=== PATIENT | female | born 1960 | race Caucasian/White ===

== ENCOUNTER 2018-04-07 11:30 | Emergency (ER) | payer OTHER, SELFPAY ==
[2018-04-07 11:35] VITALS: BP 150/81; PULSE 64; RESP 16; TEMP 36.1; O2SAT 99; BMI 24.9
--- NOTE | 2018-04-07 11:52 | DI.RAD.S_ITS ---
PROCEDURE: XR CHEST 1V INDICATIONS: chest pain TECHNIQUE: One view of the chest was acquired. COMPARISON: None. FINDINGS: Surgical changes and devices: None. Lungs and pleura: No pleural effusions or pneumothorax. Lungs are clear. Mediastinum: Mediastinal contours appear normal. Heart size is normal. Bones and chest wall: No suspicious bony lesions. Overlying soft tissues appear unremarkable. IMPRESSION: No acute cardiopulmonary abnormality. Source of chest pain not seen. Dictated by: Rey Horne M.D. on 04/07/2018 at 12:15 Approved by: Rey Horne M.D. on 04/07/2018 at 12:16
[2018-04-07 12:01] LABS: Add Manual Diff / Slide Review NO; Basophils Percent Auto 0.7 % (0-2); Hematocrit 35.8 % (36-46); Hemoglobin 12.3 g/dL (12.0-16.0); Mean Corpuscular HGB Conc 34.5 % (30-36); Mean Corpuscular Hemoglobin 31.4 PG (26-34); Monocytes Percent Auto 8.5 % (3-14); Neutrophils Absolute Auto 3000 /uL (3000-5900); Neutrophils Percent Auto 54.8 % (50-75); Platelet Count 217 X10^3/uL (150-400); Red Blood Cell Count 3.93 X10^6/uL (4.0-5.2); Red Cell Distribution Width 13.8 % (11.6-14.8); White Blood Cell Count 5.5 X10^3/uL (4.5-11.0)
[2018-04-07 12:12] LABS: Prothrombin Time 11.3 SECONDS (10.1-12.7)
[2018-04-07 12:15] LABS: Alanine Aminotransferase 28 IU/L (9-52); Albumin 4.5 g/dL (3.5-5.0); Albumin Globulin Ratio 1.4 (1.0-2.8); Alkaline Phosphatase 63 U/L (38-126); Aspartate Aminotransferase 30 IU/L (14-36); BUN Creatinine Ratio 22.9 (6-22); Bilirubin Total 0.6 mg/dL (0.2-1.3); Blood Urea Nitrogen 16 mg/dL (7-17); Calcium 9.5 mg/dL (8.4-10.2); Carbon Dioxide 31 mmol/L (22-32); Chloride 100 mmol/L (98-107); Creatine Kinase 58 U/L (30-135); Estimated Glomerular Filt Rate > 60.0 mL/min (>60); Globulin 3.2 g/dL (1.7-4.1); Glucose 104 mg/dL (70-100); HEMOLYSIS < 15 (0-50); Lipase 157 U/L (23-300); PTT Partial Thromboplastin Tim 29 SECONDS (26.4-36.2); Potassium 3.7 mmol/L (3.4-5.1); Sodium 139 mmol/L (137-145); Total Protein 7.7 g/dL (6.3-8.2)
[2018-04-07 12:28] LABS: Troponin I < 0.012 ng/mL (0.01-0.034)
--- NOTE | 2018-04-07 12:40 | ED.CHESTPAIN ---
HPI - Chest Pain <CHRIS Odonnell - Last Filed: 04/07/18 23:00> General Chief Complaint: Chest Pain Stated Complaint: 'WEIRD CHEST PAINS' Time Seen by Provider: 04/07/18 12:40 History of Present Illness HPI narrative: 57-year-old female here for complaint of having ?chest pressure? with feelings of a fluttering in her chest on and off for the past couple of months. She denies any cardiac history. She states that she did have a stress test last year and was normal. She denies any stressors or relievers of her symptoms. She does report that she does get periodic shortness of breath if she goes up stairs. No nausea vomiting no diaphoresis. She does not have any chest pain. She denies any symptoms at this time. She is ambulatory into the emergency room. She denies having any cough. She does report having increased stress over the same time frame. No other concerns or complaints. Related Data Home Medications Medication Instructions Recorded Confirmed aspirin 81 mg tablet,delayed 81 mg PO DAILY 04/07/18 04/07/18 release esomeprazole magnesium 1 cap PO DAILY 04/07/18 04/07/18 Allergies Allergy/AdvReac Type Severity Reaction Status Date / Time No Known Drug Allergies Allergy Verified 04/07/18 10:38 Review of Systems <CHRIS Odonnell - Last Filed: 04/07/18 23:00> Constitutional Denies chills, Denies fatigue, Denies fever(s), Denies lethargy and Denies weakness Eyes Denies change in vision, Denies eye discharge, Denies irritation and Denies loss of vision ENT Ears, Nose, Mouth, and Throat: Denies change in voice, Denies neck pain and Denies sore throat Cardiovascular Denies dyspnea and Denies dyspnea on exertion Comments: . Headache chest pressure and dyspnea while going up stairs Respiratory Denies cough, Denies dyspnea, Denies dyspnea on exertion and Denies wheezing Gastrointestinal Gastrointestinal: Denies abdominal pain, Denies change in bowel habits, Denies diarrhea, Denies nausea and Denies vomiting Genitourinary Denies hematuria, Denies flank pain, Denies urinary incontinence and Denies urinary urgency Musculoskeletal Denies neck pain Integumentary/Breasts Denies pruritus, Denies erythema, Denies rash and Denies wounds Neurologic Denies confusion, Denies loss of vision and Denies weakness Psychiatric Denies anxiety, Denies confusion, Denies depression, Denies homicidal ideation and Denies suicidal ideation Endocrine Denies fatigue and Denies flushing Hematologic/Lymphatic Denies easy bruising Allergic/Immunologic Denies wheezing Exam <CHRIS Odonnell - Last Filed: 04/07/18 23:00> Initial Vital Signs Initial Vital Signs: Vital Signs Temperature 97.0 F L 04/07/18 11:35 Pulse Rate 64 04/07/18 11:35 Respiratory Rate 16 04/07/18 11:35 Blood Pressure 150/81 H 04/07/18 11:35 Pulse Oximetry 99 04/07/18 11:35 Const General: cooperative and well developed Nutritional Appearance: well nourished Orientation: alert, awake, oriented x3 and not confused HENMT Mouth: oral mucosae normal and moist mucous membranes Eyes Conjunctivae: conjunctivae normal Sclera: sclerae normal Pupils: PERRL EOM: EOM intact bilaterally Chest Chest: normal inspection of the chest Resp Effort & Inspection: normal respiratory effort, able to speak in complete sentences, no respiratory distress and no use of accessory muscles Auscultation: clear to auscultation bilaterally, no rales, no rhonchi and no wheezes Cardio Rate: regular rate Rhythm: regular rhythm Heart Sounds: no click, no gallops, no murmurs and no rubs Pulses: normal peripheral pulses Skin General: no rashes or lesions noted, No jaundice and No petechiae Neuro General: alert, oriented x3, gait normal and no focal motor deficits Speech: speech normal <Yovani Almaraz DO - Last Filed: 04/08/18 07:21> Initial Vital Signs Initial Vital Signs: Vital Signs Temperature 97.0 F L 04/07/18 11:35 Pulse Rate 64 04/07/18 11:35 Respiratory Rate 16 04/07/18 11:35 Blood Pressure 150/81 H 04/07/18 11:35 Pulse Oximetry 99 04/07/18 11:35 Scores <CHRIS Odonnell - Last Filed: 04/07/18 23:00> HEART Score Heart Score history: Slightly Suspicious Heart Score EKG: Normal Heart Score Age: 45-64 years old Heart Score risk factors: No known risk factors Heart Score troponin: < or = to normal limit Heart Score Total: 1 PERC Score Age greater than or equal to 50 years: Yes Heart rate greater than or equal to 100 bpm: No Room Air O2 Sat less than 95%: No Unilateral leg swelling: No Recent trauma or surgery: No Hemoptysis: No Prior PE or DVT: No Hormone Use: No Total PERC Score: 1 Course <CHRIS Odonnell - Last Filed: 04/07/18 23:00> Orders Ordered: ED Orders 04/07/18 11:50 B Type Natriuretic Peptide Stat Complete Blood Count AUTO DIFF Stat Comprehensive Metabolic Panel Stat D Dimer Stat Lipase Stat Partial Thromboplastin Time Stat Prothrombin Time INR Stat Troponin & CK Cardiac Panel Stat 04/07/18 11:52 XR chest 1V Stat EKG-12 Lead Stat Vital Signs - 8 hr 04/07/18 11:35 Temperature 97.0 F L Pulse Rate 64 Respiratory Rate 16 Blood Pressure 150/81 H Pulse Oximetry 99 <Yovani Almaraz DO - Last Filed: 04/08/18 07:21> Orders Ordered: ED Orders 04/07/18 11:50 B Type Natriuretic Peptide Stat Complete Blood Count AUTO DIFF Stat Comprehensive Metabolic Panel Stat D Dimer Stat Lipase Stat Partial Thromboplastin Time Stat Prothrombin Time INR Stat Troponin & CK Cardiac Panel Stat 04/07/18 11:52 XR chest 1V Stat EKG-12 Lead Stat Vital Signs - 8 hr 04/07/18 11:35 Temperature 97.0 F L Pulse Rate 64 Respiratory Rate 16 Blood Pressure 150/81 H Pulse Oximetry 99 MDM - Chest Pain <CHRIS Odonnell - Last Filed: 04/07/18 23:00> Lab Data Result diagrams: 04/07/18 11:50 04/07/18 11:50 Lab Results 04/07/18 04/07/18 04/07/18 Range/Units 11:50 11:50 11:50 WBC 5.5 (4.5-11.0) X10^3/uL RBC 3.93 L (4.0-5.2) X10^6/uL Hgb 12.3 (12.0-16.0) g/dL Hct 35.8 L (36-46) % MCV 91.0 (80-100) fL MCH 31.4 (26-34) PG MCHC 34.5 (30-36) % RDW 13.8 (11.6-14.8) % Plt Count 217 (150-400) X10^3/uL Neut % (Auto) 54.8 (50-75) % Lymph % (Auto) 33.0 (25-40) % [place] % (Auto) 8.5 (3-14) % Eos % (Auto) 3.0 (2-4) % Baso % (Auto) 0.7 (0-2) % Neut # (Auto) 3000 (0028-9346) /uL PT 11.3 (10.1-12.7) SECONDS INR 1.0 (0.9-1.3) APTT 29 (26.4-36.2) SECONDS D-Dimer < 200 (<230) ng/mL Sodium 139 (137-145) mmol/L Potassium 3.7 (3.4-5.1) mmol/L Chloride 100 (98-107) mmol/L Carbon Dioxide 31 (22-32) mmol/L BUN 16 (7-17) mg/dL Creatinine 0.70 (0.52-1.04) mg/dL Estimated GFR > 60.0 (>60) mL/min BUN/Creatinine Ratio 22.9 H (6-22) Glucose 104 H (70-100) mg/dL Calcium 9.5 (8.4-10.2) mg/dL Total Bilirubin 0.6 (0.2-1.3) mg/dL AST 30 (14-36) IU/L ALT 28 (9-52) IU/L Alkaline Phosphatase 63 (38-126) U/L Total Creatine Kinase 58 (30-135) U/L Troponin I < 0.012 (0.01-0.034) ng/mL B-Natriuretic Peptide < 100.0 (<100) Total Protein 7.7 (6.3-8.2) g/dL Albumin 4.5 (3.5-5.0) g/dL Globulin 3.2 (1.7-4.1) g/dL Albumin/Globulin Ratio 1.4 (1.0-2.8) Lipase 157 (23-300) U/L Imaging Data Chest x-ray: Radiologist's impression: PROCEDURE: XR CHEST 1V INDICATIONS: chest pain TECHNIQUE: One view of the chest was acquired. COMPARISON: None. FINDINGS: Surgical changes and devices: None. Lungs and pleura: No pleural effusions or pneumothorax. Lungs are clear. Mediastinum: Mediastinal contours appear normal. Heart size is normal. Bones and chest wall: No suspicious bony lesions. Overlying soft tissues appear unremarkable. IMPRESSION: No acute cardiopulmonary abnormality. Source of chest pain not seen. Dictated by: Rey Horne M.D. on 04/07/2018 at 12:15 Approved by: Rey Horne M.D. on 04/07/2018 at 12:16 ECG Data Interpretation: EKG shows sinus bradycardia with no ST elevation or depression. No ectopy. Ventricular rate of 59. Pr interval of 227. QRS duration of 89. QT of 441 MDM Narrative Medical decision making narrative: CBC and Chem panel were obtained were unremarkable. Chest x-ray was negative for any acute findings. EKG shows sinus bradycardia with no ST elevation or depression. Troponin was negative. BMP was obtained and was negative as well. D-dimer was less than 200. Recommend the patient follow up with primary care provider with discussion of Holter monitor due to complaint of fluttering in her chest at times and no abnormal rhythms were seen in the emergency room today. Differential of anxiety related symptoms due to increased stress. Follow up with primary care provider in the next few days for re-evaluation. For any worsening symptoms return to the emergency room. <Yovani Almaraz, DO - Last Filed: 04/08/18 07:21> Lab Data Lab Results 04/07/18 04/07/18 04/07/18 Range/Units 11:50 11:50 11:50 WBC 5.5 (4.5-11.0) X10^3/uL RBC 3.93 L (4.0-5.2) X10^6/uL Hgb 12.3 (12.0-16.0) g/dL Hct 35.8 L (36-46) % MCV 91.0 (80-100) fL MCH 31.4 (26-34) PG MCHC 34.5 (30-36) % RDW 13.8 (11.6-14.8) % Plt Count 217 (150-400) X10^3/uL Neut % (Auto) 54.8 (50-75) % Lymph % (Auto) 33.0 (25-40) % [place] % (Auto) 8.5 (3-14) % Eos % (Auto) 3.0 (2-4) % Baso % (Auto) 0.7 (0-2) % Neut # (Auto) 3000 (8448-0276) /uL PT 11.3 (10.1-12.7) SECONDS INR 1.0 (0.9-1.3) APTT 29 (26.4-36.2) SECONDS D-Dimer < 200 (<230) ng/mL Sodium 139 (137-145) mmol/L Potassium 3.7 (3.4-5.1) mmol/L Chloride 100 (98-107) mmol/L Carbon Dioxide 31 (22-32) mmol/L BUN 16 (7-17) mg/dL Creatinine 0.70 (0.52-1.04) mg/dL Estimated GFR > 60.0 (>60) mL/min BUN/Creatinine Ratio 22.9 H (6-22) Glucose 104 H (70-100) mg/dL Calcium 9.5 (8.4-10.2) mg/dL Total Bilirubin 0.6 (0.2-1.3) mg/dL AST 30 (14-36) IU/L ALT 28 (9-52) IU/L Alkaline Phosphatase 63 (38-126) U/L Total Creatine Kinase 58 (30-135) U/L Troponin I < 0.012 (0.01-0.034) ng/mL B-Natriuretic Peptide < 100.0 (<100) Total Protein 7.7 (6.3-8.2) g/dL Albumin 4.5 (3.5-5.0) g/dL Globulin 3.2 (1.7-4.1) g/dL Albumin/Globulin Ratio 1.4 (1.0-2.8) Lipase 157 (23-300) U/L Discharge Plan Departure Patient Disposition: Home, Self-Care Clinical Impression: Chest pain Discharge Date/Time: 04/07/18 14:17 Interventions: ED Discharge Assessment Last Done: 04/07/18 14:17 Instructions: DI for Atypical Chest Pain Activity Restrictions/Additional Instructions: Laboratory results EKG and chest x-ray were unremarkable today. Recommend following up with her primary care provider in the next few days for re-evaluation and discussion of obtaining Holter monitor for further evaluation. Differential of some anxiety may be causing some of her symptoms also discussed this with her primary care provider. For any worsening symptoms return to the emergency room for Prescriptions: No Action aspirin [Adult Low Dose Aspirin] 81 mg tablet,delayed release (DR/EC) 81 mg PO DAILY RF: 0 esomeprazole magnesium 1 cap PO DAILY RF: 0 Referrals: Nelly Sethi MD [Primary Care Provider] - <Yovani Almaraz DO - Last Filed: 04/08/18 07:21> Cosign ED Attending Kevin Attestation: I was available for consultation during this patient's emergency department encounter
[2018-04-07 13:22] LABS: D Dimer < 200 ng/mL (<230)
[2018-04-07 13:36] LABS: B Type Natriuretic Peptide < 100.0 (<100)
== END 2018-04-07 14:17 | disposition home or self-care (01) ==
PROVIDERS: Emergency Medicine; Emergency Provider Nurse Practitioner Family; Family Provider Family Medicine; PCP Family Medicine
DX: R07.89 Other chest pain (principal)
CPT/HCPCS: 36591; 71045; 80053; 82550; 82553; 83690; 83880; 84484; 85025; 85379; 85610; 85730; 93005; 99282; 99285

== ENCOUNTER → 2018-04-10 14:49 | Outpatient (CLI) | payer OTHER, SELFPAY ==
[2018-04-10 16:50] LABS: Thyroid Stimulating Hormone 1.42 uIU/mL (0.47-4.68)
== END ==
PROVIDERS: PCP Internal Medicine; Visit Provider Internal Medicine
DX: R00.2 Palpitations (principal)
CPT/HCPCS: 36415; 84443

== ENCOUNTER → 2018-04-24 13:53 | Outpatient (CLI) | payer OTHER, SELFPAY ==
--- NOTE | 2018-05-05 07:58 | PM.CARDMON.1 ---
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
== END ==
PROVIDERS: Family Provider Family Medicine; PCP Internal Medicine; Visit Provider Internal Medicine
DX: R00.2 Palpitations (principal)
CPT/HCPCS: 0296T

== ENCOUNTER → 2019-04-13 14:26 | Outpatient (CLI) | payer OTHER, SELFPAY ==
--- NOTE | 2019-04-13 | DI.MG.S_ITS ---
BILATERAL DIGITAL SCREENING MAMMOGRAM 3D/2D WITH CAD: 04/13/2019 CLINICAL: Routine screening. Comparison is made to exams dated: 04/15/2017 mammogram, 02/28/2015 mammogram, 12/15/2012 mammogram, 01/08/2011 mammogram, and 11/04/2009 mammogram - [facility]. The tissue of both breasts is extremely dense, which lowers the sensitivity of mammography. Current study was also evaluated with a Computer Aided Detection (CAD) system. No significant masses, calcifications, or other findings are seen in either breast. There has been no significant interval change. IMPRESSION: NEGATIVE There is no mammographic evidence of malignancy. A 1 year screening mammogram is recommended. This exam was interpreted at Station ID: [id number]. NOTE: For mammograms, a report in lay terms will be sent to the patient. Approximately 15% of breast malignancies will not be visualized mammographically. In the management of a palpable breast mass, a negative mammogram must not discourage biopsy of a clinically suspicious lesion. Electronically Signed By: Ten goff/jada:04/13/2019 15:07:21 letter sent: Normal Exam ACR BI-RADS Category 1: Negative 3341F
== END ==
PROVIDERS: PCP Family Medicine; Visit Provider Family Medicine
DX: Z12.31 Encounter for screening mammogram for malignant neoplasm of breast (principal)
CPT/HCPCS: 77063; 77067

== ENCOUNTER → 2021-06-25 10:42 | Outpatient (CLI) | payer OTHER, SELFPAY ==
--- NOTE | 2021-06-25 | DI.MG.S_ITS ---
BILATERAL DIGITAL SCREENING MAMMOGRAM 3D/2D WITH CAD: 06/25/2021 CLINICAL: Routine screening. Comparison is made to exams dated: 04/13/2019 mammogram, 04/15/2017 mammogram, and 02/28/2015 mammogram - [facility]. The tissue of both breasts is extremely dense, which lowers the sensitivity of mammography. Current study was also evaluated with a Computer Aided Detection (CAD) system. No significant masses, calcifications, or other findings are seen in either breast. There has been no significant interval change. IMPRESSION: NEGATIVE There is no mammographic evidence of malignancy. A 1 year screening mammogram is recommended. This exam was interpreted at Station ID: [id number]. NOTE: For mammograms, a report in lay terms will be sent to the patient. Approximately 15% of breast malignancies will not be visualized mammographically. In the management of a palpable breast mass, a negative mammogram must not discourage biopsy of a clinically suspicious lesion. Electronically Signed By: Sheldon de la rosa/jada:06/25/2021 11:17:49 letter sent: Normal Exam ACR BI-RADS Category 1: Negative 3341F
== END ==
PROVIDERS: PCP Family Medicine; Referring Provider Family Medicine; Visit Provider Family Medicine
DX: Z12.31 Encounter for screening mammogram for malignant neoplasm of breast (principal)
CPT/HCPCS: 77063; 77067

== ENCOUNTER → 2021-08-12 09:03 | Outpatient (CLI) | payer OTHER, SELFPAY ==
[2021-08-12 12:44] LABS: COVID19 -Nasal RAPID Negative (Negative)
== END ==
PROVIDERS: PCP Family Medicine; Visit Provider Surgery
DX: Z01.812 Encounter for preprocedural laboratory examination (principal); Z20.822 Contact with and (suspected) exposure to COVID-19
CPT/HCPCS: 87635

== ENCOUNTER 2021-08-13 07:47 | Day surgery (SDC) | payer OTHER, SELFPAY ==
--- NOTE | 2021-08-13 | PATH_ITS ---
[facility] Accession Number: [id number] . 01 Material submitted: . sigmoid colon - SIGMOID COLON POLYPS X2 . 02 Diagnosis: Sigmoid Colon Polyps x2: Portions of hyperplastic polyp x2. MRV 08/17/2021 1055 Local . 02 Electronically signed: . Alicia Richmond MD, Pathologist NPI- [id number] . 01 Gross description: . SIGMOID COLON POLYPS X2: Received in formalin are 2 fragment(s) of iqbal, soft tissue measuring 0.6 x 0.3 x 0.3 cm to 0.3 x 0.3 x 0.2 cm submitted entirely in 1 cassette(s) /QBJ 08/14/2021 0836 Local . 02 Pathologist provided ICD-10: K63.5 . 02 CPT . 221737 Performed at: 01 [facility] [address] [id number] MD Sheldon Medina MD Phone: [phone] Performed at: 02 [facility] [address] [place], [place] [id number] MD Kavita Blue MD Phone: [phone]
[2021-08-13 08:00] VITALS: BP 112/74; PULSE 67; RESP 14; TEMP 36.3; O2SAT 95; BMI 24.7
[2021-08-13] MEDS: LACTATED RINGERS 1,000 ML 42 ML IV (08:22)
--- NOTE | 2021-08-13 08:34 | P.HP_ITS ---
History of Present Illness History of Present Illness Date Patient Seen: 08/13/21 Time Patient Seen: 08:35 Chief complaint: [facility] Narrative: Daisy is a 60-year-old woman who had a colonoscopy at age 51 and had a polyp removed that had some cancer within the polyp. She has since had several colonoscopies that were normal. She has no present symptoms or complaints. She is otherwise generally healthy. Patient History Medical History (Updated 08/13/21 @ 08:36 by Juan Kitchen MD) Carcinoma (2011) Colon polyps Tubulovillous adenoma of colon Surgical History (Updated 04/10/18 @ 08:35 by Rissa Raymundo) History of laparoscopy (1989) Family & Social History Family History (Updated 04/10/18 @ 08:36 by Rissa Raymundo) Father Cardiac disease Mother No problems noted. Social History: household members spouse Tobacco & Substance use: Smoking Status Former smoker alcohol intake frequency a few times a week Substance Use Type does not use Meds Home Medications and Allergies Allergies Allergy/AdvReac Type Severity Reaction Status Date / Time No Known Drug Allergies Allergy Verified 08/13/21 07:57 Exam Vital Signs (past 8 hours): - 08/13/21 08:00 Temperature 97.4 F L Pulse Rate 67 Respiratory Rate 14 Blood Pressure 112/74 Pulse Oximetry 95 Oxygen Delivery Method Room Air Const General: healthy appearing and comfortable Eyes General: appearance normal, both eyes and all related structures Assessment & Plan Assessment and plan (1) History of colon polyps: Status: Acute Plan 60-year-old woman with a history of colon polyp that had cancer but was felt to be completely removed by polypectomy. We will proceed with a colonoscopy. She was appraised of the risks and benefits and she would like to proceed. Time Spent With Patient Critical Care time: I spent a total of [] minutes of critical care time on this patient's care today; this time is exclusive of procedural time.
--- NOTE | 2021-08-13 08:39 | PM.PREOP ---
Pre-operative Note COVID-19 COVID-19 status: Negative Result date/Date tested (Pos, Neg/Pending): 08/12/21 Interval Note History & Physical reviewed/Exam performed by Physician: Yes Changes to H&P: No ASA Class (for procedural sedation): II
[2021-08-13] MEDS: MIDAZOLAM 5 MG/5 ML VIAL IV (09:00)
[2021-08-13] MEDS: fentaNYL 250 MCG/5 ML INJ IV (09:03)
--- NOTE | 2021-08-13 09:22 | PM.OP.COLON ---
Procedure & Clinicians Study performed: Colonoscopy Same procedure as scheduled: Yes Indications: History of colon polyp with a adenocarcinoma Surgeon: Juan Kitchen Procedure Notes SCOAP/Timeout: Yes Procedure in detail: Procedure: The patient was brought to the endoscopy suite, placed in left lateral decubitus position. The patient was connected to monitoring devices. A time-out was performed. Sedation was administered. Once the patient was adequately sedated, a digital rectal exam was performed and was normal. The scope was then inserted and advanced to the cecum where the appendiceal orifice was identified and photographed. The terminal ileum was intubated and no abnormalities were noted. The scope was then slowly withdrawn over greater than 6 minutes. Mucosa was thoroughly inspected. There were 2 small polyps under 1 cm in the distal sigmoid colon, one removed with cold snare and the other with hot snare. The scope was retroflexed in the rectum. No abnormality was noted. The scope was straightened and removed. The patient was awakened and brought to recovery. Sedation: 200 mcg of fentanyl and 7 mg of Versed EBL: 2 mL Findings: 2 small subcentimeter polyps in the distal sigmoid colon Scope withdrawal time: 11 minutes Sedation minutes: 39 Findings: polyp(s) Complications: none Post-procedure Recommendations: Will call with biopsy results
[2021-08-13 09:23] VITALS: BP 119/72; PULSE 56; RESP 12; TEMP 36.6; O2SAT 97
[2021-08-13 09:28] VITALS: BP 112/74; PULSE 58; RESP 14; O2SAT 96
[2021-08-13 09:32] VITALS: BP 110/71; PULSE 58; RESP 12; O2SAT 97
[2021-08-13 09:38] VITALS: BP 111/73; PULSE 54; RESP 16; TEMP 36.4; O2SAT 99
== END 2021-08-13 09:55 | disposition home or self-care (01) ==
PROVIDERS: PCP Family Medicine; Referring Provider Surgery; Visit Provider Surgery
PROC: 0DJD8ZZ Inspection of Lower Intestinal Tract, Via Natural or Artificial Opening Endoscopic (ICD-10-PCS; CPT 45378; principal; 2021-08-13 08:30)
DX: Z12.11 Encounter for screening for malignant neoplasm of colon (principal); Z86.010 Personal history of colon polyps; Z85.038 Personal history of other malignant neoplasm of large intestine; K63.5 Polyp of colon
CPT/HCPCS: 45385; 87635; 99152; 99153; C9803; J2250; J3010

== ENCOUNTER → 2022-08-09 11:13 | Outpatient (CLI) | payer OTHER, SELFPAY ==
--- NOTE | 2022-08-09 | DI.MG.S_ITS ---
BILATERAL DIGITAL SCREENING MAMMOGRAM 3D/2D WITH CAD: 08/09/2022 CLINICAL: Routine screening. Comparison is made to exams dated: 06/25/2021 mammogram, 04/13/2019 mammogram, and 04/15/2017 mammogram - [facility]. Both breasts are heterogeneously dense, which may obscure small masses (category c / 51-75% glandular tissue). Current study was also evaluated with a Computer Aided Detection (CAD) system. No significant masses, calcifications, or other findings are seen in either breast. There has been no significant interval change. IMPRESSION: NEGATIVE There is no mammographic evidence of malignancy. A 1 year screening mammogram is recommended. Based on the Tyrer Cuzick model (a risk assessment model) the patient's lifetime risk is 13.3% and her 10 year risk is 5.4%. According to the ACR, ACS, and NCCN guidelines, an annual breast MRI exam along with mammogram is recommended if the patient's lifetime risk is 20% or greater. This exam was interpreted at Station ID: [id number]. NOTE: For mammograms, a report in lay terms will be sent to the patient. Approximately 15% of breast malignancies will not be visualized mammographically. In the management of a palpable breast mass, a negative mammogram must not discourage biopsy of a clinically suspicious lesion. Electronically Signed By: Allyn cole/jada:08/09/2022 11:59:14 letter sent: Normal Exam ACR BI-RADS Category 1: Negative [id number]
== END ==
PROVIDERS: PCP Family Medicine; Referring Provider Family Medicine; Visit Provider Family Medicine
DX: Z12.31 Encounter for screening mammogram for malignant neoplasm of breast (principal)
CPT/HCPCS: 77063; 77067

== ENCOUNTER → 2022-09-03 13:39 | Outpatient (CLI) | payer OTHER, SELFPAY ==
--- NOTE | 2022-09-03 13:40 | DI.CT.S_ITS ---
PROCEDURE: CT CHEST WO CON INDICATIONS: Personal history of nicotine dependence TECHNIQUE: Noncontrast 2.0-2.5 mm thick sections acquired from the pulmonary apices to the posterior costophrenic angles. 7 mm thick axial MIP, and 5 mm coronal and sagittal reformats were then acquired. A low radiation dose technique was utilized. COMPARISON: None. FINDINGS: Image quality: Diagnostic, given the low radiation dose technique. Lungs and pleura: Tiny calcified granuloma in the right lung apex (image 50/series 3). Lungs are otherwise clear. No acute airspace disease. No pneumothorax or pleural effusion. No septal thickening or nodularity. No suspicious pulmonary nodules or masses. Mediastinum: Heart size is normal. No pericardial effusion. No mediastinal adenopathy by size criteria. Thoracic aorta and central pulmonary arteries are normal in size. Esophagus is normal in caliber. No hiatal hernia. Bones and chest wall: No suspicious bony lesions. No vertebral body compression fractures. No axillary or supraclavicular adenopathy by size criteria. Thyroid gland is unremarkable. Abdomen: Visualized upper abdomen solid organs and bowel loops appear normal in the absence of contrast. IMPRESSION: CT chest without acute cardiopulmonary abnormalities. No suspicious pulmonary nodules or mass lesions. LUNG-RADS 1; recommend follow-up low-dose screening chest CT in 12 months as long as patient continues to meet criteria for screening. Dictated by: Darnell Lockhart M.D. on 09/03/2022 at 14:59 Approved by: Darnell Lockhart M.D. on 09/03/2022 at 15:16
== END ==
PROVIDERS: PCP Family Medicine; Referring Provider Family Medicine; Visit Provider Family Medicine
DX: Z12.2 Encounter for screening for malignant neoplasm of respiratory organs (principal); Z87.891 Personal history of nicotine dependence
CPT/HCPCS: 71250

== ENCOUNTER → 2022-09-14 09:57 | Outpatient (CLI) | payer OTHER, SELFPAY ==
[2022-09-14 10:53] LABS: COVID19 -Nasal RAPID Negative (Negative)
== END ==
PROVIDERS: PCP Family Medicine; Referring Provider Radiology Diagnostic Radiology; Visit Provider Radiology Diagnostic Radiology
DX: Z20.822 Contact with and (suspected) exposure to COVID-19 (principal)
CPT/HCPCS: 87635; C9803

== ENCOUNTER → 2022-09-15 07:49 | Outpatient (CLI) | payer OTHER, SELFPAY ==
--- NOTE | 2022-09-15 07:50 | DI.NM.S_ITS ---
PROCEDURE: NM EXERCISE TREADMILL NON NUC COMPARISON: None. INDICATIONS: Chest pain, unspecified FINDINGS: The patient exercised for 10 minutes and 21 seconds, reaching 100% of maximum predicted heart rate. Very good exercise tolerance (12.8METs, ANN -50%). No angina, no diagnostic ST changes, and no ectopy with exercise or during recovery. IMPRESSION: Low risk, normal treadmill ECG only stress test with very good exercise tolerance (ANN -50%). Dictated by: Nitin Garcia MD on 09/16/2022 at 12:26 Approved by: Nitin Garcia MD on 09/16/2022 at 12:28
== END ==
PROVIDERS: PCP Family Medicine; Referring Provider Family Medicine; Visit Provider Family Medicine
DX: R07.9 Chest pain, unspecified (principal)
CPT/HCPCS: 93017

== ENCOUNTER → 2022-12-02 08:07 | Outpatient (CLI) | payer OTHER, SELFPAY | PROVIDERS: PCP Family Medicine; Visit Provider Registered Nurse | DX: N39.0 Urinary tract infection, site not specified (principal) | CPT/HCPCS: 87077; 87086; 87186 ==

== ENCOUNTER → 2023-03-24 07:12 | Outpatient (CLI) | payer OTHER, SELFPAY ==
--- NOTE | 2023-03-24 | DI.US.S_ITS ---
PROCEDURE: US ABDOMEN LIMITED INDICATIONS: GROIN LUMP / SUSPECT HERNIA TECHNIQUE: Real-time focused scanning was performed of the area of lump in the right inguinal region, with image documentation. COMPARISON: None. FINDINGS: The area lump in the right inguinal region corresponds to a lymph node measuring 1.2 x 1.2 x 0.5 cm. It demonstrates slight irregular cortical contour, but maintains a fatty hilum and normal hilar vascular flow. No suspicious cortical thickening. No other adjacent or suspicious lymph nodes. No adjacent inguinal hernia. IMPRESSION: 1. Minimally prominent, but benign-appearing right inguinal lymph node corresponding to the palpable abnormality. 2. No inguinal hernia visible on this exam. Dictated by: Alisha Vidales M.D. on 03/24/2023 at 9:08 Approved by: Alisha Vidales M.D. on 03/24/2023 at 9:10
== END ==
PROVIDERS: PCP Family Medicine; Referring Provider Family Medicine; Visit Provider Family Medicine
DX: R19.09 Other intra-abdominal and pelvic swelling, mass and lump (principal)
CPT/HCPCS: 76705

== ENCOUNTER → 2024-01-12 06:40 | Outpatient (CLI) | payer OTHER, SELFPAY ==
--- NOTE | 2024-01-12 06:42 | DI.US.S_ITS ---
PROCEDURE: US ABDOMEN LIMITED INDICATIONS: Localized enlarged lymph nodes TECHNIQUE: Real-time focused scanning was performed of the abdomen, with image documentation. COMPARISON: [facility], , US ABDOMEN LIMITED, 03/24/2023, 7:25. FINDINGS: Similar appearance of right inguinal lymph node measuring 6 millimeters in short axis with a normal fatty hilum. No suspicious cortical thickness. No other adjacent or suspicious lymph nodes are seen. No inguinal hernia. IMPRESSION: Similar appearance of normal appearing right inguinal lymph node. No inguinal hernias identified. Dictated by: Beck Bryant M.D. on 01/12/2024 at 10:25 Approved by: Beck Bryant M.D. on 01/12/2024 at 10:27
== END ==
PROVIDERS: PCP Family Medicine; Referring Provider Family Medicine; Visit Provider Family Medicine
DX: R10.31 Right lower quadrant pain (principal); R59.0 Localized enlarged lymph nodes; G89.29 Other chronic pain
CPT/HCPCS: 76705

== ENCOUNTER → 2024-11-21 08:39 | Outpatient (CLI) | payer OTHER, SELFPAY ==
--- NOTE | 2024-11-21 08:40 | DI.CT.S_ITS ---
PROCEDURE: CT ABDOMEN PELVIS W CON INDICATIONS: right groin pain TECHNIQUE: After the administration of intravenous contrast, axial sections acquired from the lung bases to the pubic symphysis. Coronal and sagittal reformats were performed. For radiation dose reduction, the following was used: automated exposure control, adjustment of mA and/or kV according to patient size. COMPARISON: None. FINDINGS: Image quality: Diagnostic. Peritoneum: No pneumoperitoneum or ascites. Bones: No acute osseous abnormality. Mild bilateral CAM morphology of the proximal femurs. Grade 1 anterolisthesis of L4 on L5. Lower Chest: Mild cardiomegaly. Liver: Normal in size and contour. Gallbladder: No stones or pericholecystic fluid. Biliary tree: No intrahepatic or extrahepatic biliary ductal dilatation. Pancreas: Within normal limits. Spleen: Normal in size and contour. Kidneys: No hydronephrosis or obstructive urolithiasis. Adrenals: No adrenal nodularity. Bladder: Normal in size and wall thickness. : Anteverted uterus. No abnormal adnexal masses. Stomach: Normal in size and contour. Bowel: Normal in diameter without any bowel obstruction. Appendix within normal limits (3/41). Oral contrast opacifying the stomach, small bowel, and cecum Lymph Nodes: No retroperitoneal, mesenteric, or inguinal lymphadenopathy. Vascular: No abdominal aortic aneurysm. The visualized arterial vasculature is patent. Mild aortoiliac atherosclerosis. Mild soft and calcified atherosclerosis at the right common femoral artery (2/118; 4/86). Soft Tissues: Deep to the palpable, nonenlarged right inguinal lymph nodes, there is a 1.7 cm round hypodense region with internal gas that lies anterior to the right anterior acetabular wall (2/118). IMPRESSION: Subcutaneous 1.7 cm lesion anterior to the right anterior acetabular wall, corresponding to the palpable abnormality, which may represent a paralabral cyst decompressing from the right acetabular labrum. Consider orthopedic referral for further management. Dictated by: Johan Moralez M.D. on 11/21/2024 at 10:50 Approved by: Johan Moralez M.D. on 11/21/2024 at 11:02
[2024-11-21 10:09] LABS: Estimated Glomerular Filt Rate > 60 mL/min (>60)
== END ==
PROVIDERS: PCP Family Medicine; Referring Provider Surgery; Visit Provider Surgery
DX: L98.9 Disorder of the skin and subcutaneous tissue, unspecified (principal); I51.7 Cardiomegaly; I70.0 Atherosclerosis of aorta; I70.201 Unspecified atherosclerosis of native arteries of extremities, right leg; R10.31 Right lower quadrant pain
CPT/HCPCS: 36415; 74177; 82565; Q9967

== ENCOUNTER → 2025-07-31 14:10 | Outpatient (CLI) | payer OTHER, SELFPAY ==
--- NOTE | 2025-07-31 14:13 | DI.MG.S_ITS ---
MM screening mammo BI: 07/31/2025. BI-RADS: 1 CLINICAL: 64-year old female for bilateral screening mammogram. Tyrer-Cuzick lifetime risk of 9.2%. No personal or first-degree family history of breast cancer. PRIOR EXAMS 08/09/2022, 06/25/2021, 04/13/2019, 04/15/2017. MAMMOGRAPHY TECHNIQUE: 2D and 3D (tomosynthesis) digital mammographic views obtained, with additional images as needed for full coverage. Current study was also evaluated with a Computer Aided Detection (CAD) system. DENSITY C. The breasts are heterogeneously dense, which may obscure small masses. MAMMOGRAPHY FINDINGS Bilateral: No suspicious mass, asymmetry, microcalcification, or other abnormality seen. IMPRESSION: * No evidence of malignancy. RECOMMENDATIONS Bilateral * Annual screening mammography. OVERALL ASSESSMENT CATEGORY BI-RADS-1: Negative. [employer] recommends annual screening mammography beginning at age 40 for women with average risk of breast cancer. ELECTRONICALLY SIGNED: Darnell Lockhart M.D. on 08/01/2025 at 07:39:39 AM PT Interpreting Station ID: [id number]
== END ==
LOC: MAMMO 14:12
DX: Z12.31 Encounter for screening mammogram for malignant neoplasm of breast (principal); R92.333 Mammographic heterogeneous density, bilateral breasts
CPT/HCPCS: 77063; 77067